=== PATIENT | female | born 1970 | race Caucasian/White ===

== ENCOUNTER → 2021-02-23 | Outpatient (CLI) | payer BC ==
--- NOTE | 2021-02-28 22:54 | SLE ---
[facility] [place] [address] POLYSOMNOGRAPHY STUDY Name: TROY PHILLIP Room #: REG [place] DeclanElizabeth.#: [id number] Admission: 02/23/21 Attend Phys: Mitzi Díaz MD Discharge: Date of : 68 Report #: [id number] THIS REPORT FOR: cc: Mitzi Díaz MD,Mitesh Cox MD, MD ~ cc: Mitzi Díaz MD DATE OF SERVICE: 02/23/2021 SLEEP STUDY ATTENDING PHYSICIAN: Dr. Mitzi Díaz. The patient is 51 years old who weighs 146 pounds with a BMI of 24.3. The patient's [place] score was 19. The patient underwent diagnostic sleep study performed at [facility]. During the night study, the patient spent 428 minutes in bed and slept for 376 minutes with a sleep efficiency of 88%. Sleep latency was 10 minutes with a REM latency of 220 minutes. Sleep architecture showed increased stage 1 and stage 2 sleep, normal slow wave and reduced REM sleep. There was alpha intrusion in stage II sleep. During the night of the study, patient had no apneas. The patient had 3 hypopneas. The patient's AHI was 0.5 per hour. No significant respiratory events seen during REM sleep or supine sleep. EKG monitoring revealed an average heart rate of 59 beats per minute. No arrhythmias observed. No PLMs seen. Nocturnal oximetry study revealed an average oxygen saturation of 92% with a lowest of 84%. Seven minutes were spent with oxygen saturation of less than 89%. Due to low AHI, the patient did not met the split night criteria for CPAP initiation. IMPRESSION: 1. No clinically significant sleep disorder breathing. The patient's AHI for the entire night was 0.5 per hour. 2. Mild nocturnal hypoxia. 3. No significant PLMS. 4. Normal sleep efficiency. RECOMMENDATIONS: [facility] [address] [place] [address] POLYSOMNOGRAPHY STUDY Name: TROY PHILLIP [id number]mission: 02/23/21 Attend Phys: Mitzi Díaz MD Discharge: Date of : 68 Report #: [id number] 1. The patient did not meet the split night criteria for CPAP initiation due to low AHI. 2. The patient has severe subjective hypersomnia with an [place] score of 19. If clinical suspicion for other disorders such as narcolepsy is high, then consider doing multiple sleep latency test. 3. Avoid [employer] depressants. 4. Cautioned regarding driving until patient's hypersomnia is resolved. <ELECTRONICALLY SIGNED> By: Mitesh Stewart MD 02/28/21 [id number] Mitesh Stewatr MD /nt
== END ==
LOC: SLEEPLAB 11:04
PROVIDERS: ATTEND Family Medicine
DX: R09.02 Hypoxemia (principal); G47.10 Hypersomnia, unspecified; R40.0 Somnolence; Z20.822 Contact with and (suspected) exposure to COVID-19